=== PATIENT | female | born 1980 | race Caucasian/White ===

== ENCOUNTER 2017-03-18 10:43 | Emergency (ER) | payer BC ==
[~2017-03-18] VITALS: Ht 165.1 cm; Wt 81.1 kg
[~2017-03-18 10:43] MED LIST: METH750T87 PO; OXYC5TAB3 PO; RIVA15TA PO; VENL75CA PO
[2017-03-18] MEDS ORDERED: ANTIDEPRESSANT (10:57)
[2017-03-18] MEDS ORDERED: ONDANSETRON 2MG/ML, 2ML ONE (11:27)
[2017-03-18] MEDS ORDERED: MORPHINE SULFATE 4 MG/ML, 1ML ONE ×2 (11:27→11:58)
[2017-03-18] MEDS ORDERED: SODIUM CHLORIDE FLUSH 10ML SYR IVF ONE (11:30)
[2017-03-18] MEDS: MORPHINE SULFATE 4 MG/ML, 1ML IVPush PRN ×2 (11:30→11:59)
[2017-03-18] MEDS ORDERED: SODIUM CHLORIDE 0.9% 1,000ML IVBOLUS ONE (11:30)
[2017-03-18] MEDS ORDERED: ONDANSETRON 2MG/ML, 2ML IVPush ONE (11:30)
[2017-03-18 11:58] LABS: BLOOD UREA NITROGEN 6 mg/dL (7-18)
[2017-03-18 12:01] VITALS: BP 104/53
[2017-03-18 12:04] LABS: ASPARTATE AMINO TRANSFERASE 7 U/L (15-37)
[2017-03-18] MEDS ORDERED: KETOROLAC 30 MG/1 ML IVPush ONE (12:30)
[2017-03-18] MEDS ORDERED: KETOROLAC 30 MG/1 ML ONE (12:31)
== END 2017-03-18 12:45 | disposition home or self-care (01) ==
LOC: ED 12:20
DX: N30.90 Cystitis, unspecified without hematuria (principal); M54.5 Low back pain; F17.210 Nicotine dependence, cigarettes, uncomplicated; Z88.6 Allergy status to analgesic agent
CPT/HCPCS: 36415; 76830; 80053; 81001; 84702; 85025; 87077; 87086; 87186; 96361; 96374; 96375; 99285; J1885; J2405; J7030

== ENCOUNTER 2017-03-22 07:51 | Emergency (ER) | payer BC ==
[~2017-03-22] VITALS: Ht 165.1 cm; Wt 82.3 kg
[~2017-03-22 07:51] MED LIST changes: +ANTIDEPRESSANT
[2017-03-22 07:52] VITALS: BP 117/79
[2017-03-22] MEDS ORDERED: SODIUM CHLORIDE 0.9% 1,000ML IVBOLUS ONE (08:30)
[2017-03-22] MEDS ORDERED: MORPHINE SULFATE 4 MG/ML, 1ML IVPush PRN (08:30)
[2017-03-22] MEDS ORDERED: ONDANSETRON 2MG/ML, 2ML IVPush ONE (08:30)
[2017-03-22] MEDS ORDERED: SODIUM CHLORIDE FLUSH 10ML SYR IVF ONE (08:30)
[2017-03-22 08:51] LABS: ASPARTATE AMINO TRANSFERASE 7 U/L (15-37); BLOOD UREA NITROGEN 6 mg/dL (7-18)
[2017-03-22] MEDS ORDERED: ONDANSETRON 2MG/ML, 2ML ONE (09:08)
[2017-03-22] MEDS ORDERED: MORPHINE SULFATE 4 MG/ML, 1ML ONE (09:09)
[2017-03-22] MEDS ORDERED: OMNIPAQUE 350 MG/ML, 100ML BOTTLE ONE (09:30)
[2017-03-22] MEDS ORDERED: KETOROLAC 30 MG/1 ML IVPush ONE (10:00)
[2017-03-22] MEDS ORDERED: METOCLOPRAMIDE 5 MG/ML, 2ML IVPush ONE (10:00)
[2017-03-22] MEDS ORDERED: METOCLOPRAMIDE 5 MG/ML, 2ML ONE (10:41)
[2017-03-22] MEDS ORDERED: KETOROLAC 30 MG/1 ML ONE (10:41)
== END 2017-03-22 11:05 | disposition home or self-care (01) ==
LOC: ED 08:40
DX: S39.012A Strain of muscle, fascia and tendon of lower back, initial encounter (principal); N39.0 Urinary tract infection, site not specified; G89.29 Other chronic pain; Z90.49 Acquired absence of other specified parts of digestive tract; X58.XXXA Exposure to other specified factors, initial encounter; Y93.89 Activity, other specified; Y92.89 Other specified places as the place of occurrence of the external cause; Y99.8 Other external cause status
CPT/HCPCS: 36415; 74177; 80053; 81003; 83690; 85025; 96361; 96374; 96375; 99285; J1885; J2405; J2765; J7030; Q9967

== ENCOUNTER 2019-07-11 15:04 | Emergency (ER) | payer BC ==
[~2019-07-11] VITALS: Ht 165.1 cm; Wt 79.0 kg
[~2019-07-11 15:04] MED LIST changes: +DESV100T PO; +PROP60CA PO; +ZOLP10TA PO
--- NOTE | 2019-07-11 15:15 | NUR ---
PT BIB [facility] AFTER EXPERIENCING A SYNCOPAL EPISODE. PT HAS NOT EATEN SINCE LAST NIGHT, HAD A SEROQUEL DOSAGE CHANGE, AND ALSO TOOK A PRN DIAZEPAM THIS MORNING. BS 105 PER [facility]. PT WAS WALKING INTO A CASINO, BECAME LIGHT HEADED, AND THEN FELL INTO A DOORHANDLE STRIKING HER LEFT FOREHEAD, BEFORE FALLING TO THE GROUND AND STRIKING HER LEFT ELBOW. BP 86/40 UPON [facility] ARRIVAL, 250ML BOLUS OF NS GIVEN, BP NOW 124/65. ALSO GIVEN 4MG ZOFRAN RESTORATION SILVERSMITH. PT C/O HEAD PAIN THROUGH FOREHEAD AND THE TOP OF HER HEAD AT 15/10. REQUESTING WATER, WATER DEFERRED MEGAN FOR TX UNTIL ERP CLEARS. PT DENIES ANY FURTHER NEEDS OR CONCERNS. ATTACHED TO MONITORS. CALL LIGHT IN REACH.
[2019-07-11 15:58] LABS: BASOPHILS # (AUTO) 0.08 x10^3/uL (0-0.1); BASOPHILS % (AUTO) 1 % (0-1); EOSINOPHILS # (AUTO) 0.13 x10^3/uL (0-0.4); EOSINOPHILS % (AUTO) 1 % (1-7); LYMPHOCYTES # (AUTO) 2.35 x10^3/uL (1-3.4); LYMPHOCYTES % (AUTO) 21 % (22-44); MD NO; MEAN CORPUSCULAR HEMOGLOBIN 32.3 pg (27.0-34.8); MEAN CORPUSCULAR HGB CONC 33.7 g/dL (32.4-35.8); MEAN CORPUSCULAR VOLUME 95.9 fL (80-100); MEAN PLATELET VOLUME 8.6 fL (7.4-10.4); MONOCYTES % (AUTO) 6 % (2-9); NEUTROPHILS # (AUTO) 7.91 x10^3/uL (1.8-6.8); NEUTROPHILS % (AUTO) 72 % (42-75); PLATELET COUNT 291 x10^3/uL (130-400); RED BLOOD COUNT 4.49 x10^6/uL (3.82-5.3); RED CELL DISTRIBUTION WIDTH 13.9 % (9.6-15.2)
[2019-07-11] MEDS ORDERED: SODIUM CHLORIDE FLUSH 10ML SYR IVF ONE (16:00)
[2019-07-11 16:02] LABS: MICROSCOPIC NOT IND
[2019-07-11 16:04] LABS: ALBUMIN 3.7 g/dL (3.4-5.0); ANION GAP 7 mmol/L (5-15); CALCIUM 8.5 mg/dL (8.5-10.1); CHLORIDE 108 mmol/L (98-107); SALICYLATE LEVEL 4.2 mg/dL (2.8-20.0)
[2019-07-11 16:05] LABS: CULTURE INDICATED? NO
[2019-07-11 16:06] LABS: ALANINE AMINOTRANSFERASE 44 U/L (12-78); ALKALINE PHOSPHATASE 38 U/L (45-117); BILIRUBIN,TOTAL 0.3 mg/dL (0.2-1.0); CREATININE 0.84 mg/dL (0.55-1.02); TOTAL PROTEIN 6.9 g/dL (6.4-8.2)
--- NOTE | 2019-07-11 16:07 | NUR ---
PT UP TO RESTROOM, STEADY GAIT. URINE SAMPLE COLLECTED AND SENT.
[2019-07-11 16:14] LABS: AMPHETAMINE SCREEN, URINE Negative (Negative); BARBITURATE SCREEN, URINE Negative (Negative); BENZODIAZEPINE SCREEN, URINE Positive (Negative); CANNABINOID SCREEN, URINE Negative (Negative); COCAINE SCREEN, URINE Negative (Negative); METHADONE SCREEN, URINE Negative (Negative); OPIATE SCREEN, URINE Negative (Negative)
--- NOTE | 2019-07-11 16:58 | NUR ---
ORTHOSTATIC PRESSURE WITHOUT ANY DETRIMENTAL CHANGE, HOWEVER PULSE STEADILY BOOGIE FROM 77 TO 107 WITH POSITIONAL CHANGE. ERP MADE AWARE. PT DENIES ANY FURTHER NEEDS OR CONCERNS AT THIS TIME.
[2019-07-11 18:04] VITALS: BP 117/68
--- NOTE | 2019-07-11 18:04 | NUR ---
REPORT FROM [facility]OW[facility]. PT RESTING. VSS. FLUIDS RUNNING. PT HAS NO NEEDS AT THIS TIME. CALL LIGHT IN REACH
--- NOTE | 2019-07-11 18:17 | NUR ---
Patient given discharge instructions and they have confirmed that they understand the instructions. Patient ambulatory with steady gait.
== END 2019-07-11 18:20 | disposition home or self-care (01) ==
LOC: ED 18:05
DX: S01.81XA Laceration without foreign body of other part of head, initial encounter (principal); R55 Syncope and collapse; R00.0 Tachycardia, unspecified; F31.9 Bipolar disorder, unspecified; F41.9 Anxiety disorder, unspecified; Z98.890 Other specified postprocedural states; Z90.49 Acquired absence of other specified parts of digestive tract; Z88.5 Allergy status to narcotic agent; W22.8XXA Striking against or struck by other objects, initial encounter; Y93.01 Activity, walking, marching and hiking; Y92.89 Other specified places as the place of occurrence of the external cause; Y99.8 Other external cause status
CPT/HCPCS: 12001; 36415; 70450; 80053; 80307; 81003; 83605; 85025; 93005